=== PATIENT | female | born 1995 | race Caucasian/White ===

== ENCOUNTER 2018-02-02 15:10 | Emergency (ER) | payer BC ==
[2018-02-02 15:35] VITALS: BP 111/67
--- NOTE | 2018-02-02 15:43 | UC ---
Ear Complaint HPI - HPI Summary HPI Summary: Patient states that she had an infection in her right here about 3 weeks ago which was treated with amoxicillin for 10 days. The ear did get better. He was better for about 1-1/2 weeks. She now has some recurrent pressure and discomfort and wants to ensure it is not reinfected. She denies any history of injury or drainage. She also denies any fever as well as upper respiratory infection. - History of Current Complaint Chief Complaint: UCEar Stated Complaint: RT EAR ACHE Time Seen by Provider: 02/02/18 15:24 Hx Obtained From: Patient Hx Last Menstrual Period: 01/25/18 Onset/Duration: Gradual Onset Pain Intensity: 3 - Allergies/Home Medications Allergies/Adverse Reactions: Allergies Allergy/AdvReac Type Severity Reaction Status Date / Time No Known Allergies Allergy Verified 02/02/18 15:33 Home Medications: Home Medications Ethinyl Estradiol/Drospirenone [Ocella 3-0.03 mg] 1 tab PO DAILY 02/02/18 [ History Confirmed 02/02/18] Venlafaxine EXT RELEASE CAP* [Effexor Xr CAP*] 37.5 mg PO DAILY 02/02/18 [ History Confirmed 02/02/18] PMH/Surg Hx/FS Hx/Imm Hx - Additional Past Medical History Additional PMH: Otitis media once otherwise healthy - Surgical History Surgical History: Yes Surgery Procedure, Year, and Place: wisdom teeth - Family History Known Family History: Positive: None - Social History Occupation: Student Alcohol Use: Occasionally Substance Use Type: None Smoking Status (MU): Never Smoked Tobacco - Immunization History Vaccination Up to Date: Yes Review of Systems Constitutional: Negative Skin: Negative Eyes: Negative ENT: Ear Ache - Right Respiratory: Negative Cardiovascular: Negative Gastrointestinal: Negative Genitourinary: Negative Motor: Negative Neurovascular: Negative Musculoskeletal: Negative Neurological: Negative Psychological: Negative Is Patient Immunocompromised?: No All Other Systems Reviewed And Are Negative: Yes Physical Exam Triage Information Reviewed: Yes Appearance: Well-Appearing Vital Signs: Initial Vital Signs Temp 98.6 F 02/02/18 15:29 Pulse 66 02/02/18 15:29 Resp 13 02/02/18 15:29 BP 111/67 02/02/18 15:29 Pulse Ox 100 02/02/18 15:29 Vital Signs Reviewed: Yes Eyes: Positive: Conjunctiva Clear ENT: Positive: Pharynx normal, TMs normal, Other - Canals are clear. No pre-or postauricular adenopathy. No mastoid tenderness.. Negative: Nasal congestion, Nasal drainage Neck: Positive: Supple, Nontender, No Lymphadenopathy Respiratory: Positive: Lungs clear, Normal breath sounds Cardiovascular: Positive: RRR, No Murmur Abdomen Description: Positive: Nontender, No Organomegaly, Soft Bowel Sounds: Positive: Present Musculoskeletal: Positive: ROM Intact Neurological: Positive: Alert Psychological: Positive: Age Appropriate Behavior Skin Exam: Normal Ear Complaint Course/Dx - Course Course Of Treatment: No sign of otitis media, otitis externa or mastoiditis. We 'll treat for eustachian tube dysfunction with nasal steroid and oral decongestants and close follow-up for recheck. - Differential Dx/Diagnosis Provider Diagnoses: Right eustachian tube dysfunction. Discharge - Sign-Out/Discharge Documenting (check all that apply): Patient Departure All imaging exams completed and their final reports reviewed: No Studies - Discharge Plan Condition: Stable Disposition: HOME Patient Education Materials: Earache (ED) Referrals: [facility] [Outside] - 7 Days Additional Instructions: DIAGNOSIS: EUSTACHIAN TUBE DYSFUNCTION. START FLONASE NASAL SPRAY PER LABEL. START A DECONGESTANT. - Billing Disposition and Condition Condition: STABLE Disposition: Home
== END 2018-02-02 15:49 | disposition home or self-care (01) ==
LOC: UCCORT 15:10
DX: H69.91 Unspecified Eustachian tube disorder, right ear (principal)
CPT/HCPCS: 99201; G0463

== ENCOUNTER 2018-03-03 19:03 | Emergency (ER) | payer BC ==
[2018-03-03 19:54] VITALS: BP 127/82
[2018-03-03] MEDS ORDERED: Acetaminophen TAB* 325 MG PO ONE (20:10)
--- NOTE | 2018-03-03 21:08 | UC ---
Respiratory Complaint HPI - HPI Summary HPI Summary: Pt presents with c/o cough, fever, generalized malaise X 6 days. Pt states she has been taking OTC cough and could symptom with no improvement. - History of Current Complaint Chief Complaint: UCGeneralIllness Stated Complaint: COUGH,HEADACHE,SOB Time Seen by Provider: 03/03/18 20:14 Hx Obtained From: Patient Hx Last Menstrual Period: 2 mos ago ?: No - pt on bcp. does not get menses monthly Onset/Duration: Gradual Onset, Lasting Days, Still Present, Worse Since - onset Timing: Constant Severity Initially: Mild Severity Currently: Moderate Pain Intensity: 0 Pain Scale Used: 0-10 Numeric Character: Cough: Productive Aggravating Factors: Exertion, Deep Breaths, Recumbent Position Alleviating Factors: Nothing Associated Signs And Symptoms: Positive: Fever, Dizziness, URI, Nasal Congestion - Risk Factors Pulmonary Embolism Risk Factors: Oral Contraceptives Cardiac Risk Factors: Negative Pseudomonas Risk Factors: Negative Tuberculosis Risk Factors: Negative - Allergies/Home Medications Allergies/Adverse Reactions: Allergies Allergy/AdvReac Type Severity Reaction Status Date / Time No Known Allergies Allergy Verified 02/02/18 15:33 Home Medications: Home Medications Albuterol HFA INHALER* [Ventolin HFA Inhaler*] 2 puff INH Q6H PRN 03/03/18 [ History Confirmed 03/03/18] Pseudoephedrine TAB* [Sudafed TAB*] 60 mg PO Q6H PRN 03/03/18 [History Confirmed 03/03/18] guaiFENesin ER TAB [Mucinex*] 600 mg PO BID PRN 03/03/18 [History Confirmed ] PMH/Surg Hx/FS Hx/Imm Hx Previously Healthy: Yes - Surgical History Surgical History: Yes Surgery Procedure, Year, and Place: wisdom teeth - Family History Known Family History: Positive: Cardiac Disease - Social History Occupation: Student Lives: Dormitory/Roommates Alcohol Use: Weekly Substance Use Type: None Smoking Status (MU): Never Smoked Tobacco Have You Smoked in the Last Year: No - Immunization History Vaccination Up to Date: Yes Review of Systems Constitutional: Fever, Chills, Fatigue Skin: Negative Eyes: Negative ENT: Negative Respiratory: Shortness Of Breath, Cough Cardiovascular: Negative Gastrointestinal: Negative Genitourinary: Negative Motor: Negative Neurovascular: Negative Musculoskeletal: Myalgia Neurological: Headache Psychological: Negative Is Patient Immunocompromised?: No All Other Systems Reviewed And Are Negative: Yes Physical Exam Triage Information Reviewed: Yes Appearance: Ill-Appearing Vital Signs: Initial Vital Signs Temp 101.2 F 03/03/18 19:49 Pulse 100 03/03/18 19:49 Resp 22 03/03/18 19:49 BP 127/82 03/03/18 19:49 Pulse Ox 100 03/03/18 19:49 Vital Signs Reviewed: Yes Eye Exam: Normal ENT: Positive: Nasal congestion, TM bulging Dental Exam: Normal Neck exam: Normal Respiratory Exam: Normal Cardiovascular Exam: Normal Musculoskeletal Exam: Normal Neurological Exam: Normal Psychological Exam: Normal Skin Exam: Normal UC Diagnostic Evaluation - Laboratory O2 Sat by Pulse Oximetry: 100 Respiratory Course/Dx - Differential Dx/Diagnosis Differential Diagnosis/HQI/PQRI: Bronchitis, Influenza Provider Diagnoses: bronchitis Discharge - Sign-Out/Discharge Documenting (check all that apply): Patient Departure All imaging exams completed and their final reports reviewed: No Studies - Discharge Plan Condition: Stable Disposition: HOME Prescriptions: Albuterol HFA INHALER* [Ventolin HFA Inhaler*] 1 - 2 puff INH Q4H PRN #1 mdi PRN Reason: Sob/Wheezing Azithromycin TAB* [Zithromax TAB (Z-TAY) 250 mg #6 tabs] 2 tab PO .TODAY, THEN 1 DAILY #1 tay Patient Education Materials: Acute Bronchitis (ED) Referrals: [facility] [Outside] No Primary Care Phys,NOPCP [Primary Care Provider] - - Billing Disposition and Condition Condition: STABLE Disposition: Home
== END 2018-03-03 20:33 | disposition home or self-care (01) ==
LOC: UCCORT 19:03
DX: J40 Bronchitis, not specified as acute or chronic (principal)
CPT/HCPCS: 99212; A9270-GY; G0463